=== PATIENT | female | born 1995 | race Caucasian/White ===

== ENCOUNTER 2021-04-03 03:10 | Emergency (ER) | payer BC, OTHER ==
[~2021-04-03] VITALS: Ht 175.3 cm; Wt 90.7 kg
--- NOTE | 2021-04-03 03:50 | NUR ---
Patient to ER bed 6 to gown for evaluation. Side rails up.
[2021-04-03 03:53] VITALS: BP_SYST 124
--- NOTE | 2021-04-03 04:04 | NUR ---
Dr. Pollock bedside for pt eval
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
--- NOTE | 2021-04-03 04:40 | NUR ---
Pt taken to Radiology in stable condition
--- NOTE | 2021-04-03 05:17 | NUR ---
Pt back from Radiology, well tolerated
--- NOTE | 2021-04-03 05:57 | NUR ---
Dr. Pollock bedside for pt re - eval and update
[2021-04-03] MEDS ORDERED: IBUP-1969 PO (06:15)
[2021-04-03] MEDS ORDERED: ONDA-8 TL (06:15)
[2021-04-03 06:20] VITALS: BP_SYST 124
--- NOTE | 2021-04-03 06:20 | NUR ---
Patient given written and verbal discharge instructions and verbalizes understanding. ER MD discussed with patient the results and treatment provided. Patient in stable condition. ID arm band removed. Rx of Zofran and Ibuprofen given. Patient educated on pain management and to follow up with PMD. Pain Scale 0/10 Opportunity for questions provided and answered. Medication side effect fact sheet provided.
== END 2021-04-03 07:49 | disposition home or self-care (01) ==
LOC: SED 03:10
DX: S06.0X0A Concussion without loss of consciousness, initial encounter (principal); Z79.899 Other long term (current) drug therapy; Y04.0XXA Assault by unarmed brawl or fight, initial encounter; Y93.89 Activity, other specified; Y92.89 Other specified places as the place of occurrence of the external cause; Y99.8 Other external cause status
CPT/HCPCS: 70450-TC; 72125-TC; 76376; 99285